=== PATIENT | female | born 1955 | race Caucasian/White ===

== ENCOUNTER 2018-03-03 05:23 | Day surgery (SDC) | payer BC ==
[~2018-03-03] VITALS: Ht 149.9 cm; Wt 58.5 kg
[~2018-03-03 05:23] MED LIST: MIRALAX17 GM PO; SYNTHROID112 MCG PO
[2018-03-03 05:54] VITALS: BP 189/80
[2018-03-03 08:42] VITALS: BP 146/67
== END 2018-03-03 08:55 | disposition home or self-care (01) ==
LOC: SDC 05:23
DX: H35.341 Macular cyst, hole, or pseudohole, right eye (principal); H35.371 Puckering of macula, right eye; E03.9 Hypothyroidism, unspecified
CPT/HCPCS: J0690; J2250; J3010; J3300